=== PATIENT | female | born 1960 | race Caucasian/White ===

== ENCOUNTER → 2016-11-19 | Outpatient (CLI) | payer OTHER ==
--- NOTE | 2016-11-19 10:22 | XR ---
EXAMINATION TYPE: XR chest 2V DATE OF EXAM: 11/19/2016 HISTORY: I10 hypertension. REFERENCE: NONE. FINDINGS: The lungs are overinflated but clear. Pleural spaces are clear. Heart size is normal. IMPRESSION: COPD.
== END | disposition home or self-care (01) ==
LOC: RADXRMAIN 09:50
PROVIDERS: ATTEND Family Medicine
DX: J44.9 Chronic obstructive pulmonary disease, unspecified (principal); I10 Essential (primary) hypertension
CPT/HCPCS: 71020

== ENCOUNTER → 2017-01-23 | Outpatient (CLI) | payer OTHER ==
--- NOTE | 2017-01-23 07:50 | US ---
EXAMINATION TYPE: US liver DATE OF EXAM: 01/23/2017 COMPARISON: NONE CLINICAL HISTORY: B18.2 Chronic Hepatitis C. EXAM MEASUREMENTS: Liver Length: 15.2 cm Gallbladder Wall: 0.2 cm CBD: 0.3 cm Right Kidney: 10.3 x 3.6 x 4.4 cm Pancreas: visualized portions appear wnl, tail obscured by overlying bowel content Liver: appears wnl Gallbladder: echogenic foci noted anterior wall Evidence for sonographic Newton's sign: no CBD: wnl Right Kidney: hyperechoic area lower pole = 0.6 x 0.5 x 0.6cm IMPRESSION: 1. Unremarkable liver. No discrete masses are evident. 2. Echogenic foci inferior pole right kidney. Consider additional workup with contrast CT of the abdo men to evaluate the kidneys. Alternatively, MRI could be utilized.
== END | disposition home or self-care (01) ==
LOC: RADUSWWP 06:55
PROVIDERS: ATTEND Internal Medicine Gastroenterology
DX: B18.2 Chronic viral hepatitis C (principal)
CPT/HCPCS: 76705

== ENCOUNTER → 2017-02-04 | Outpatient (CLI) | payer OTHER ==
--- NOTE | 2017-02-04 09:24 | BD ---
EXAMINATION TYPE: MG DEXA axial skeleton. DATE OF EXAM: 02/04/2017 CLINICAL HISTORY: M19.90 Osteoarthiritis Height: 59 inches Weight: 140 pounds FRAX RISK QUESTIONS: Alcohol (3 or more units per day): no Family History (Parent hip fracture): no Glucocorticoids (More than 3mos): yes, inhaler very rarely (Ex: prednisone, prednisolone, methylprednisolone, dexamethasone, and hydrocortisone). History of Fracture in Adulthood: yes, wrist when in High School Secondary Osteoporosis: 1. Type 1 Diabetes: no 2. Hyperthyroidism: no 3. Menopause before 45: yes, hysterectomy age 37 4. Malnutrition: no 5. Chronic liver disease: patient has Hepatitis C Rheumatoid Arthritis: yes Current Tobacco Use: yes RISK FACTORS HISTORY OF: Family History of Osteoporosis: perhaps great grandmother Active: yes Diet low in dairy products/other sources of calcium: no Postmenopausal woman: yes Take estrogen and/or progesterone medications: no Lost more than 2 inches in height since high school: no Frequent falls: no Poor Health: no Hyperparathyroidism: no Adrenal Insufficiency: no MEDICATIONS: Prednisone or other steroids: yes, inhaler, rarely for several months Thyroid Medications: no Osteoporosis Medications: no Additional Medications: cholesterol meds, Vitamin D EXAM MEASUREMENTS: Bone mineral densitometry was performed using the Echelon System. Bone mineral density as measured about the Lumbar spine is: ----- L1-L4(G/cm2): 1.084 T Score Values are as follows: ----- L2: -0.7 ----- L3: -0.7 ----- L4: -0.4 ----- L1-L4: -0.6 Bone mineral density not previously done at this facility; years ago patient had bone density study o f calcaneus Bone mineral density about the R hip (g/cm2): 0.792 Bone mineral density about the L hip (g/cm2): 0.757 T Score values are as follows: -----R Neck: -1.8 -----L Neck: -2.0 -----R Total: -1.2 -----L Total: -1.3 Bone mineral density not previously done at this facility; years ago patient had bone density study o f calcaneus IMPRESSION: Osteopenia about the bilateral femoral as such there is increased fracture risk. NOTE: T-SCORE=SD OF THE YOUNG ADULT MEAN.
--- NOTE | 2017-02-05 11:21 | MM ---
Reason for exam: screening (asymptomatic). Last mammogram was performed 2 years and 8 months ago. History: Patient is postmenopausal. Physical Findings: A clinical breast exam by your physician is recommended on an annual basis and results should be correlated with mammographic findings. MG Screening Mammo w CAD Bilateral CC and MLO view(s) were taken. Prior study comparison: May 26, 2014, mammogram, performed at [facility]. The breast tissue is heterogeneously dense. This may lower the sensitivity of mammography. Finding: There are typically benign round calcifications in both breasts. There is no discrete abnormality. ASSESSMENT: Benign, BI-RAD 2 RECOMMENDATION: Routine screening mammogram of both breasts in 1 year.
== END | disposition home or self-care (01) ==
LOC: RADMAMWWP 12-29 15:33
PROVIDERS: ATTEND Family Medicine
DX: Z12.31 Encounter for screening mammogram for malignant neoplasm of breast (principal); M85.852 Other specified disorders of bone density and structure, left thigh; M85.851 Other specified disorders of bone density and structure, right thigh
CPT/HCPCS: 77080; G0202

== ENCOUNTER → 2017-02-10 | Outpatient (CLI) | payer OTHER ==
--- NOTE | 2017-02-10 10:33 | CT ---
EXAMINATION TYPE: CT abdomen w con DATE OF EXAM: 02/10/2017 COMPARISON: NONE INDICATION: Patient has complains of nausea and vomiting at time of study. Patient had abnormal US o f the abdomen. Patient has a history of hepatitis C. DLP: 358.8 mGycm, Automated exposure control for dose reduction was used. CONTRAST: 100 mL of Omnipaque 300. Study performed with Oral Contrast TECHNIQUE: Axial images were obtained from above the diaphragm to the pubic rami in the axial plane a t 5 mm thick sections. Reconstructed images are reviewed on the computer in the coronal plane. FINDINGS: Limited CT sections are obtained the lung bases. The lung bases are clear. CT ABDOMEN: Liver: Normal. No suspicious masses. Spleen: Normal Pancreas: Normal Adrenal glands: The adrenal glands are normal. Gallbladder: Normal Kidneys: Suspected meningeal. Mild lipomas from the ultrasound on 02/16/2014 are not clearly identifie d. Hypodense lesions may account for these findings on the postcontrast images.. No hydronephrosis is present. There is a 1.4 cm cyst on the mid left kidney laterally measuring 19 Hounsfield units. D elayed images were obtained through the kidneys, which remain unremarkable. Aorta: Vascular calcification is within the aorta. There is fusiform prominence of the distal abdomi nal aorta terminating at the bifurcation with a maximum AP diameter of 2.4 cm. Inferior vena cava: Normal. CT PELVIS: Loops of bowel within the abdomen and pelvis are normal. There are loops of bowel which are incom pletely distended or lack oral contrast limiting their evaluation. Appendix: Normal as visualized. IMPRESSIONS: 1. Renal cysts. Suspected angiomyolipomas are less well visualized.
== END | disposition home or self-care (01) ==
LOC: RADCTMAIN 07:48
PROVIDERS: ATTEND Family Medicine
DX: N28.1 Cyst of kidney, acquired (principal); R94.4 Abnormal results of kidney function studies
CPT/HCPCS: 74160; Q9967

== ENCOUNTER → 2017-04-24 | Outpatient (CLI) | payer OTHER ==
[2017-04-24 09:11] LABS: Basophils # (A) 0.1 k/uL (0-0.2); Basophils % (A) 1 %; CH 31.6; CHCM 33.8; Eosinophils # (A) 0.3 k/uL (0-0.7); Eosinophils % (A) 3 %; HCT 45.8 % (34.0-46.0); HGB 15.1 gm/dL (11.4-16.0); Luc % (Auto) 4; Lymphocytes # (A) 1.8 k/uL (1.0-4.8); Lymphocytes % (A) 24 %; Mean Platelet Volume 7.1; Monocytes # (A) 0.5 k/uL (0-1.0); Monocytes % (A) 6 %; Neutrophils # (A) 4.6 k/uL (1.3-7.7); Neutrophils % (A) 62 %; RBC 4.87 m/uL (3.80-5.40); RDW 13.1 % (11.5-15.5); WBC 7.5 k/uL (3.8-10.6); WBC (Perox) 6.91
[2017-04-24 09:27] LABS: ALT 88 U/L (9-52); AST 51 U/L (14-36); Alkaline Phosphatase 81 U/L (38-126); Anion Gap 8 mmol/L; Blood Urea Nitrogen 9 mg/dL (7-17); Calcium 9.7 mg/dL (8.4-10.2); Carbon Dioxide 26 mmol/L (22-30); Chloride 105 mmol/L (98-107); Glucose 94 mg/dL (74-99); Non-African American GFR(MDRD) >60 (>60 ml/min/1.73 sqM); Potassium 4.6 mmol/L (3.5-5.1); Sodium 139 mmol/L (137-145); Total Bilirubin 0.8 mg/dL (0.2-1.3); Total Protein 7.8 g/dL (6.3-8.2)
[2017-04-27 15:37] LABS: HCV Qualitative Result DETECTED (Not detected)
== END | disposition home or self-care (01) ==
LOC: LABWHC1 08:29
PROVIDERS: ATTEND Internal Medicine Gastroenterology
DX: B18.2 Chronic viral hepatitis C (principal)
CPT/HCPCS: 36415; 80053; 82105; 85025; 87522; 87902

== ENCOUNTER → 2017-06-02 | Outpatient (CLI) | payer OTHER ==
[2017-06-02 11:43] LABS: ALT 54 U/L (9-52); AST 25 U/L (14-36); Amylase 122 U/L (30-110); GGT 31 U/L (12-43); Lipase 118 U/L (23-300)
[2017-06-04 15:25] LABS: Hepatits C Virus RNA DETECTED (Not detected); Hepatits C Virus RNA, Quant 155 IU/mL (<12); LOG HCV IU/mL 2.19 (<1.08)
== END | disposition home or self-care (01) ==
LOC: LABWHC1 10:52
PROVIDERS: ATTEND Family Medicine
DX: R10.0 Acute abdomen (principal); K85.80 Other acute pancreatitis without necrosis or infection
CPT/HCPCS: 36415; 82150; 82977; 83690; 84450; 84460; 87522

== ENCOUNTER → 2017-07-31 | Day surgery (SDC) | payer OTHER ==
[2017-07-29 11:53] VITALS: BMI 28.2
[~2017-07-31] MED LIST: LACTATED RINGERS 1,000 ML IV SCH; LIDOCAINE 1% 20 ML VIAL (10MG/ML) FOR IV START INTRADERMA ONE; LIDOCAINE 1% INJ 10MG/ML (20 ML MDV) ONE; ONDANSETRON 4 MG/2 ML VIAL IVP ONE; PROPOFOL 10 MG/ML 20 ML VIAL IV ONE
[2017-07-31 10:16] VITALS: TEMP 97
--- NOTE | 2017-07-31 11:38 | P.PCN ---
Date of Procedure: 07/31/17 Procedure(s) Performed: BRIEF HISTORY: Patient is a 57-year-old, pleasant, female, scheduled for an upper endoscopy as a part of evaluation of epigastric pain/nausea vomiting for last 2 months duration. She was started on Prilosec 20 mg daily and symptoms are gradually improving.. PROCEDURE PERFORMED: Esophagogastroduodenoscopy with biopsy. PREOPERATIVE DIAGNOSIS: Epigastric pain/nausea and vomiting of 2 months duration. IV sedation per anesthesia. PROCEDURE: After informed consent was obtained, the patient was brought into the endoscopy unit. IV sedation was administered by Anesthesia under continuous monitoring. Initially the Olympus GIF-140 video endoscope was inserted into the mouth. Esophagus intubated without any difficulty. It was gradually advanced into the stomach and duodenum and carefully examined. The bulb and the second part of the duodenum appeared normal. The scope at this time was withdrawn to the stomach, adequately insufflated with air, and upon careful examination, there was a 1 cm ulceration noted in the pyloric channel with no active bleeding. The mucosa of the antrum, had scattered erosions and biopsies were done from this area to evaluate for H. pylori infection. There was another 1 cm ulceration along the incisura angularis which was also biopsied. The body, cardia and the fundus appeared normal. The scope was then withdrawn into the esophagus. The GE junction was located at 39 cm from the incisors. The esophagus appeared normal. There were no erosions or ulcerations seen and the patient tolerated the procedure well. IMPRESSION: 1. 1 cm clean-based gastric ulcer on the incisura angularis status post biopsy. 2. 1 cm pyloric channel ulcer. 3. Mild antral gastritis RECOMMENDATIONS: The findings of this examination were discussed with the patient as well as a family. She was advised to continue with Prilosec 20 mg daily and avoid NSAIDs. Will plan a repeat upper endoscopy in 3-4 months to evaluate for ulcer healing.
[2017-07-31 11:57] VITALS: BP 135/75; PULSE 83; RESP 16
== END ==
LOC: ORWHC2ENDO 09:17
PROVIDERS: ATTEND Internal Medicine Gastroenterology
DX: K29.50 Unspecified chronic gastritis without bleeding (principal); B96.81 Helicobacter pylori [H. pylori] as the cause of diseases classified elsewhere; K25.9 Gastric ulcer, unspecified as acute or chronic, without hemorrhage or perforation; M06.9 Rheumatoid arthritis, unspecified; M79.7 Fibromyalgia; G25.81 Restless legs syndrome; K21.9 Gastro-esophageal reflux disease without esophagitis; B19.20 Unspecified viral hepatitis C without hepatic coma; Z79.899 Other long term (current) drug therapy; Z88.0 Allergy status to penicillin; Z72.0 Tobacco use
CPT/HCPCS: 88305; 88342; 43239; J2405; J2001; J2704

== ENCOUNTER 2021-12-20 15:55 | Emergency (ER) | payer OTHER ==
[2021-12-20] MEDS ORDERED: ONDANSETRON 4 MG/2 ML VIAL IVP STA (16:16)
[2021-12-20] MEDS ORDERED: MORPHINE SULFATE 4 MG/ML SYRINGE IV STA ×2 (16:16→18:08)
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
[2021-12-20 16:48] LABS: Basophils # (A) 0.1 k/uL (0-0.2); Basophils % (A) 1 %; Eosinophils # (A) 0.2 k/uL (0-0.7); Eosinophils % (A) 3 %; HGB 15.3 gm/dL (11.4-16.0); Lymphocytes # (A) 2.2 k/uL (1.0-4.8); Lymphocytes % (A) 35 %; MCH 30.9 pg (25.0-35.0); MCHC 32.5 g/dL (31.0-37.0); MCV 95.2 fL (80.0-100.0); Mean Platelet Volume 8.2; Monocytes # (A) 0.3 k/uL (0-1.0); Monocytes % (A) 5 %; Neutrophils # (A) 3.4 k/uL (1.3-7.7); Neutrophils % (A) 54 %; Platelet Count 261 k/uL (150-450); RBC 4.94 m/uL (3.80-5.40); RDW 12.5 % (11.5-15.5); WBC 6.3 k/uL (3.8-10.6)
[2021-12-20 16:57] LABS: ALT 138 U/L (4-34); AST 88 U/L (14-36); African American GFR (CKD) >90 (>60 ml/min/1.73 sqM); Albumin 4.5 g/dL (3.5-5.0); Alkaline Phosphatase 80 U/L (38-126); Anion Gap 9 mmol/L; Blood Urea Nitrogen 12 mg/dL (7-17); Calcium 9.6 mg/dL (8.4-10.2); Carbon Dioxide 26 mmol/L (22-30); Chloride 103 mmol/L (98-107); Glucose 137 mg/dL (74-99); Non-African American GFR(CKD) >90 (>60 ml/min/1.73 sqM); Potassium 4.2 mmol/L (3.5-5.1); Sodium 138 mmol/L (137-145); Total Bilirubin 0.8 mg/dL (0.2-1.3)
--- NOTE | 2021-12-20 17:40 | CT ---
EXAMINATION TYPE: CT cervical spine wo con CT DLP: 258.6 mGycm, Automated exposure control for dose reduction was used. DATE OF EXAM: 12/20/2021 5:10 PM COMPARISON: Radiographs of the right clavicle same day.. CLINICAL INDICATION:Female, 61 years old with history of fall, right neck pain. TECHNIQUE: Axial CT images from the skull base to the inferior aspect of T2 we obtained without intra venous contrast. Coronal and sagittal reformatted images were also reviewed. FINDINGS: Fracture: There is a comminuted right distal clavicle fracture. There is mild cephalad displacement o f the proximal portion measuring 5 mm. There are multiple posterior right rib fractures including rig ht rib 3, 5, 6 with fracture line identified. No significant displacement of these fractures fracture s. There is cortical buckling of right rib suggestive of fracture. This is best appreciated on series 201 image 86. Osseous structures: Multilevel degenerative disc disease changes with endplate spurring and disc oste ophyte complex's. Vertebral alignment: Within normal limits. Spinal canal/Neural Foramina: No evidence of significant spinal canal narrowing. No evidence for sign ificant neural foraminal stenosis. Neck soft tissues: Prevertebral soft tissues are within normal limits. Other: The airway is patent. Mild centrilobular emphysema changes IMPRESSION: 1. No evidence of cervical spine fracture. 2. Comminuted right distal clavicle fracture. 3. Multiple right posterior rib fractures including ribs 3, 5 and 6 without displacement. Cortical bu ckling of right rib for suggestive of nondisplaced fracture also. 4. Mild centrilobular emphysema changes. 5. Mild multilevel degenerative disc disease.
[2021-12-20] MEDS ORDERED: KETOROLAC 15 MG/ML 1 ML VIAL IVP STA (18:08)
--- NOTE | 2021-12-20 18:32 | XR ---
EXAMINATION TYPE: XR shoulder complete RT DATE OF EXAM: 12/20/2021 5:53 PM INDICATION: Patient age:Female; 61 years old; Reason for study: Right posterior and anterior shoulder pain COMPARISON: Chest x-ray 11/19/2016 TECHNIQUE: The right shoulder was examined in AP, internally rotated and scapular Y projections. . FINDINGS: Right distal clavicular fracture with approximately 9 mm of superior displacement of the medial clavi cular fracture margin. Minimally displaced right lateral fourth and fifth rib fractures. Nondisplaced fracture of the right third rib posteriorly. Nondisplaced fractures of the right posterior seventh a nd eighth ribs. No evidence for pneumothorax as visualized. The acromioclavicular joint maintains normal alignment. The sternoclavicular joint appears normally a ligned. Humerus is normal in appearance. No radiopaque foreign bodies. IMPRESSION: 1. Minimally displaced distal clavicular fracture. Sternoclavicular and acromioclavicular joints are normally aligned. 2. Minimally displaced right and fifth rib fractures. 3. Non-displaced fractures of the third, seventh and eighth ribs.
--- NOTE | 2021-12-20 18:51 | XR ---
EXAMINATION TYPE: XR clavicle RT DATE OF EXAM: 12/20/2021 5:53 PM INDICATION: Patient age:Female; 61 years old; Reason for study: Right posterior and anterior shoulder pain and inj; PHH. COMPARISON: Right shoulder x-ray 12/20/2021 TECHNIQUE: AP and cephalic tilt views were obtained of the right clavicle. FINDINGS: Minimally displaced fracture involving the distal third of the clavicle with superior displacement an d foreshortening of the proximal clavicular fracture margin. The sternoclavicular and acromioclavicul ar joints maintain normal alignment. The right shoulder joint is normally aligned. Minimally displace d posterior third right rib fracture. No pneumothorax. Visualized portions of the chest are grossly u nremarkable. No radiopaque foreign bodies. IMPRESSION: 1. Displaced fracture of the distal right clavicle. 2. Minimally displaced posterior right third rib fracture.
--- NOTE | 2021-12-20 19:01 | XR ---
EXAMINATION TYPE: XR scapula RT DATE OF EXAM: 12/20/2021 5:53 PM INDICATION: Patient age:Female; 61 years old; Reason for study: Right shoulder pain; COMPARISON: Right shoulder radiograph 12/20/2021, right clavicle radiograph 12/20/2021 TECHNIQUE: The right scapula was examined in AP and lateral projections. FINDINGS: Believed There is no evidence for scapular fracture or malposition. Distal right clavicular fracture with minimal superior displacement and foreshortening. Visualized joints demonstrate normal anatomica l alignment. Redemonstration of multiple rib fractures involving the third, fourth, sixth, seventh an d eighth ribs posteriorly. Additionally, there are minimally displaced fractures involving the latera l fourth and fifth ribs. IMPRESSION: 1. No evidence for scapular fracture. 2. Multiple rib fractures involving the right third through eighth ribs as described above.
--- NOTE | 2021-12-20 19:16 | XR ---
EXAMINATION TYPE: XR chest 1V DATE OF EXAM: 12/20/2021 5:53 PM COMPARISON: Right scapular radiographs 12/20/2021, right clavicular radiographs 12/20/2021, right shoul emir radiographs 12/20/2021 TECHNIQUE: XR chest 1V . CLINICAL INDICATION:Female, 61 years old with history of Chest wall pain; FINDINGS: Lungs/Pleura: There is no evidence of pleural effusion, focal consolidation, or pneumothorax. Pulmonary vascularity: Unremarkable. Heart/mediastinum: Cardiomediastinal silhouette is unremarkable. Musculoskeletal: Minimally displaced distal right clavicle fracture. Redemonstration of fractures inv olving the right third, fourth, sixth, seventh and eighth ribs posteriorly. Minimally displaced rib f ractures of the right fourth and fifth ribs are better characterized on earlier shoulder radiographs. Degenerative changes of the thoracic spine. No evidence for displaced left rib fractures. IMPRESSION: 1. No acute cardiopulmonary disease/process. 2. Displaced distal right clavicle fracture. 3. Multiple rib fractures involving the right third through eighth ribs as described above. These are better characterized on earlier right scapula and shoulder radiographs.
[2021-12-20] MEDS ORDERED: ACET/COD 300 MG/30 MG STARTER PACK 6 TAB BTL PO STA (19:45)
--- NOTE | 2021-12-20 20:24 | XR ---
EXAMINATION TYPE: XR thoracic spine 2V DATE OF EXAM: 12/20/2021 5:52 PM INDICATION: Patient age:Female; 61 years old; Reason for study: Upper back pain; COMPARISON: Abdominal TECHNIQUE: 2 views of the thoracic spine in Frontal and lateral projections. FINDINGS: Mild multilevel disc degeneration changes throughout the visualized spine. Slight wedging of the thor acic vertebrae within the low thoracic spine. No evidence of acute fracture. There is no evidence of disk space narrowing or loss of vertebral isiah dy height. There is normal alignment of the thoracic vertebral bodies. 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 No other findings to suggest acute fracture.
[2021-12-20 20:31] VITALS: BP 125/83; RESP 14
[2021-12-20 20:46] VITALS: PULSE 68; TEMP 97.9
== END 2021-12-20 20:45 | disposition home or self-care (01) ==
LOC: EC 15:55
DX: S42.001A Fracture of unspecified part of right clavicle, initial encounter for closed fracture (principal); S22.41XA Multiple fractures of ribs, right side, initial encounter for closed fracture; F17.200 Nicotine dependence, unspecified, uncomplicated; Z88.0 Allergy status to penicillin; V89.2XXA Person injured in unspecified motor-vehicle accident, traffic, initial encounter
CPT/HCPCS: 36415; 80053; 85025; 72070; 73000; 73010; 73030; 71045; 72125; 99284; 96374; 96375; 96376; J2270; J2405; J1885